=== PATIENT | male | born 1930 | race Caucasian/White ===

== ENCOUNTER → 2017-01-31 | Outpatient (CLI) | payer BC ==
[~2017-01-31] MED LIST: ASPEC325
[2017-01-31 14:02] LABS: BASO % 0.4 %; BASO ABS # 0.02 K/uL (0-0.2); COMPLETE YES; EOS % 1.3 %; HEMATOCRIT 48.8 % (42-52); LYMPH % 24.5 %; LYMPH ABS # 1.17 K/uL (1.2-3.4); MEAN CELL VOLUME 98.4 fL (80-100); MEAN CORPUSCULAR HEMOGLOBIN 33.3 pg (25-34); MEAN CORPUSCULAR HGB CONC 33.8 g/dl (32-36); MEAN PLATELET VOLUME 10.5 fL (7.4-10.4); MONO % 14.2 %; NEUT % 59.6 %; PLATELET COUNT 159 K/uL (130-400); RED BLOOD COUNT 4.96 M/uL (4.7-6.1); WHITE BLOOD COUNT 4.78 K/uL (4.8-10.8)
[2017-01-31 14:05] LABS: BLOOD UREA NITROGEN 18 mg/dl (7-18); BUN/CREATININE RATIO 11.9 (10-20); CALCIUM 8.9 mg/dl (8.5-10.1); CARBON DIOXIDE 25 mmol/L (21-32); CHLORIDE 109 mmol/L (98-107); GLUCOSE 81 mg/dl (70-99); POTASSIUM 4.8 mmol/L (3.5-5.1); SODIUM 140 mmol/L (136-145)
== END | disposition home or self-care (01) ==
LOC: C.LABBC 11:08
PROVIDERS: ATTEND Internal Medicine Geriatric Medicine
DX: Z79.01 Long term (current) use of anticoagulants (principal); N18.3 Chronic kidney disease, stage 3 (moderate); Z86.718 Personal history of other venous thrombosis and embolism; I48.91 Unspecified atrial fibrillation

== ENCOUNTER → 2017-11-06 | Outpatient (CLI) | payer BC ==
[2017-11-06 13:22] LABS: BASO % 0.4 %; BASO ABS # 0.02 K/uL (0-0.2); EOS % 2.2 %; EOS ABS # 0.11 K/uL (0-0.5); HEMATOCRIT 46.4 % (42-52); HEMOGLOBIN 15.4 g/dL (14.0-18.0); LYMPH ABS # 1.26 K/uL (1.2-3.4); MEAN CELL VOLUME 97.7 fL (80-100); MEAN CORPUSCULAR HEMOGLOBIN 32.4 pg (25-34); MEAN CORPUSCULAR HGB CONC 33.2 g/dl (32-36); MEAN PLATELET VOLUME 10.8 fL (7.4-10.4); MONO % 11.1 %; MONO ABS # 0.56 K/uL (0.11-0.59); NEUT % 61.3 %; NEUT ABS # 3.09 K/uL (1.4-6.5); PLATELET COUNT 152 K/uL (130-400); RED CELL DISTRIBUTION WIDTH CV 14.4 % (11.5-14.5); RED CELL DISTRIBUTION WIDTH SD 51.8 fL (36.4-46.3); WHITE BLOOD COUNT 5.04 K/uL (4.8-10.8)
[2017-11-06 13:37] LABS: BLOOD UREA NITROGEN 21 mg/dl (7-18); CALCIUM 8.5 mg/dl (8.5-10.1); CARBON DIOXIDE 26 mmol/L (21-32); CREATININE 1.48 mg/dl (0.60-1.40); GLUCOSE 71 mg/dl (70-99); POTASSIUM 4.5 mmol/L (3.5-5.1); SODIUM 139 mmol/L (136-145)
== END | disposition home or self-care (01) ==
LOC: C.LABBC 10:15
PROVIDERS: ATTEND Internal Medicine Geriatric Medicine
DX: C61 Malignant neoplasm of prostate (principal); Z79.01 Long term (current) use of anticoagulants; N18.3 Chronic kidney disease, stage 3 (moderate); E55.9 Vitamin D deficiency, unspecified

== ENCOUNTER 2017-12-09 10:49 | Emergency (ER) | payer BC ==
[~2017-12-09] VITALS: Ht 190.5 cm; Wt 88.9 kg
[2017-12-09 11:03] VITALS: Ht 190.5 cm; Wt 88.9 kg
[2017-12-09] MEDS ORDERED: COEN1CAP PO (11:28)
[2017-12-09] MEDS ORDERED: CMD3 PO (11:28)
[2017-12-09] MEDS ORDERED: METO25TA56 PO (11:28)
[2017-12-09] MEDS ORDERED: CHOL100027 PO (11:28)
[2017-12-09] MEDS ORDERED: LISI-789 PO (11:28)
[2017-12-09] MEDS ORDERED: ASCO1CAP3 PO (11:28)
[2017-12-09 11:48] VITALS: BP 149/74; PULSE 88; TEMP 36.5; O2SAT 96
--- NOTE | 2017-12-09 11:57 | EMERGENCY ROOM VISIT NOTE ---
History First contact with patient: 11:25 Chief Complaint: BITE Stated Complaint: POSSIBLE TICK ON ARM History of Present Illness The patient is a 87 year old male who presents to the Emergency Room for evaluation of a possible tick bite to his right forearm. The patient reports that he has been pruning bushes over the past several days. He also took a walk [place]. The patient reports that he noticed something stuck to the arm this morning, and scratched it off. He could not see if it was a tick or not, put the foreign body in a plastic bag and presents to the emergency department for evaluation. The patient denies any arm pain. Tetanus immunization is up-to-date. 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 (7) Vitamin D Deficiency, Unspecified Family History Unremarkable Social History Smoking Status: Never Smoker Alcohol Use: none Marital Status: Occupation Status: retired Current/Historical Medications Scheduled Ascorbic Acid (Vitamin C), 1 CAP PO DAILY Cholecalciferol (Vitamin D 1000 Unit), 1,000 INTER.UNIT PO DAILY Coenzyme B73-Vczxtry E (Qunol Ultra Coq10 100-150 mg-Unit), 1 CAP PO DAILY Lisinopril (Zestril), Unknown Dose PO DAILY Metoprolol Tartrate (Lopressor) (Lopressor), 37.5 MG PO BID Warfarin Sod (Coumadin), 3 MG PO DAILY Physical Exam Vital Signs Date Time Temp Pulse Resp B/P (MAP) Pulse Ox O2 Delivery O2 Flow Rate FiO2 12/09/17 11:48 36.5 88 18 149/74 96 12/09/17 11:03 36.5 88 18 149/74 96 Room Air Physical Exam CONSTITUTIONAL: Healthy and well nourished. Patient does not appear in any acute distress. HEENT: Normocephalic, atraumatic. Pupils equal, round and reactive. NECK: Full active range of motion without discomfort. MUSCULOSKELETAL: Examination of the right volar forearm shows a small wound with an area of peripheral ecchymosis. Examination using an otoscope shows a small piece of foreign body within the wound. Examination of the foreign body in the plastic bag shows that it is not a tick, but rather organic woody material. INTEGUMENTARY: No rash or other significant dermatologic conditions noted. Patient has various areas of ecchymosis secondary to Coumadin treatment. NEUROLOGIC: No focal neurologic deficits noted. Medical Decision & Procedures ED Course Patient history and physical exam were performed. Nurse's notes were reviewed. Vital signs were reviewed and were normal. The patient was advised that the foreign body removed was a piece of what he material. I offered to remove the foreign body within the skin of the forearm. The patient refused, reporting that he feels well. The patient reported that he would put an ointment on it and allowed to push out on its own. The patient was instructed to watch for any signs of developing infection. The patient was happy with plan of care, and denied any pain at the time of discharge. The patient was also seen and examined by Dr. Shankar, ED attending physician, who agrees with workup and plan of care. Medical Decision Medication Reconcilliation Current Medication List: was personally reviewed by [facility] Blood Pressure Screening Patient's blood pressure: Normal blood pressure Impression Primary Impression: Foreign body in right forearm Departure Information Dispostion Home / Self-Care Forms HOME CARE DOCUMENTATION FORM, IMPORTANT VISIT INFORMATION Patient Instructions [facility] Typekit Additional Instructions Keep wound covered with an antibiotic ointment and BandAid to keep skin soft so that the foreign body can be pushed out. Watch for any signs of infection. Problem Qualifiers Primary Impression: Foreign body in right forearm Encounter type: initial encounter Qualified Codes: S50.851A - Superficial foreign body of right forearm, initial encounter
== END 2017-12-09 11:49 | disposition home or self-care (01) ==
LOC: C.EDB 10:51 → C.EDD 11:49
DX: S50.851A Superficial foreign body of right forearm, initial encounter (principal); W45.8XXA Other foreign body or object entering through skin, initial encounter; I48.91 Unspecified atrial fibrillation; N18.3 Chronic kidney disease, stage 3 (moderate); E78.5 Hyperlipidemia, unspecified; E55.9 Vitamin D deficiency, unspecified; Z86.711 Personal history of pulmonary embolism; Z79.899 Other long term (current) drug therapy; Z79.01 Long term (current) use of anticoagulants

== ENCOUNTER → 2018-02-19 | Outpatient (CLI) | payer BC ==
[~2018-02-19] MED LIST changes: +ASCO1CAP3 PO; -ASPEC325; +CHOL100027 PO; +CMD3 PO; +COEN1CAP PO; +LISI-789 PO; +METO25TA56 PO
[2018-02-19 13:00] LABS: BASO % 0.5 %; BASO ABS # 0.03 K/uL (0-0.2); EOS % 1.9 %; EOS ABS # 0.11 K/uL (0-0.5); HEMATOCRIT 48.7 % (42-52); HEMOGLOBIN 16.6 g/dL (14.0-18.0); LYMPH % 24.9 %; LYMPH ABS # 1.42 K/uL (1.2-3.4); MEAN CELL VOLUME 96.1 fL (80-100); MEAN CORPUSCULAR HEMOGLOBIN 32.7 pg (25-34); MEAN CORPUSCULAR HGB CONC 34.1 g/dl (32-36); MEAN PLATELET VOLUME 10.5 fL (7.4-10.4); MONO % 12.6 %; MONO ABS # 0.72 K/uL (0.11-0.59); NEUT % 60.1 %; NEUT ABS # 3.43 K/uL (1.4-6.5); PLATELET COUNT 153 K/uL (130-400); RED CELL DISTRIBUTION WIDTH CV 14.3 % (11.5-14.5); RED CELL DISTRIBUTION WIDTH SD 50.1 fL (36.4-46.3); WHITE BLOOD COUNT 5.71 K/uL (4.8-10.8)
[2018-02-19 13:10] LABS: BLOOD UREA NITROGEN 16 mg/dl (7-18); CALCIUM 8.3 mg/dl (8.5-10.1); CARBON DIOXIDE 25 mmol/L (21-32); CREATININE 1.41 mg/dl (0.60-1.40); GLUCOSE 73 mg/dl (70-99); POTASSIUM 4.4 mmol/L (3.5-5.1); SODIUM 139 mmol/L (136-145)
== END | disposition home or self-care (01) ==
LOC: C.LABBC 10:46
PROVIDERS: ATTEND Internal Medicine Geriatric Medicine
DX: E78.5 Hyperlipidemia, unspecified (principal); I87.2 Venous insufficiency (chronic) (peripheral); E55.9 Vitamin D deficiency, unspecified; N18.3 Chronic kidney disease, stage 3 (moderate); I48.2 Chronic atrial fibrillation